=== PATIENT | female | born 2005 | race Caucasian/White ===

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

== ENCOUNTER 2025-01-31 19:18 | Emergency (ER) | payer MEDICAID, SELFPAY ==
[2025-01-31 19:19] VITALS: BP 112/69; PULSE 88; RESP 16; TEMP 37; O2SAT 98
--- NOTE | 2025-01-31 20:12 | EX.ED.DYSGE1 ---
HPI History of Present Illness Chief Complaint: Dizziness Detail of Chief Complaint: Total body paresthesias followed by epistaxis Informant: patient Onset/Context/Timing Onset: Today and Hours Context: Sudden Onset Timing: Intermittent Quality: The paresthesia generalized proceed epistaxis Location: occurred at work Current Severity: Gone Maximum Severity: Moderate Worsened by: Nothing Relieved by: Spontaneous anything for home Associated Symptoms Associated Symptoms: Detailed HPI narrative Narrative Narrative: patient is a 19-year-old female who presents because of total body numbness that was followed by epistaxis. Both have resolved. 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 She denied headache. She denied visual symptoms. She states she felt something in the back of her throat when her nose began to bleed and vomited up blood. Patient is not on an anticoagulant or antithrombotic. She is on an antidepressant. She does report bruising easily recently. She has not noted any lesions on her extremities. Prior to the nosebleed she did not blow her nose, sneeze or bump her nose. Prior similar symptoms: No Recent Illness/Hospitalization: No [facility] Medical History Vapes nicotine containing substance Anxiety Home Medications ?Medication ?Instructions ?Recorded ?Last Taken ?Type melatonin 3 mg tablet 3 mg PO QHS 11/29/17 Unknown History etonogestrel 68 mg subdermal subdermal control 11/19/22 Unknown History implant escitalopram oxalate 20 mg tablet 20 mg PO QDAY 04/11/24 Unknown History cetirizine 10 mg tablet (24Hour 10 mg PO DAILY PRN seasonal 12/01/24 Unknown History Allergy) allergies hydroxyzine HCl 25 mg tablet 12.5 - 25 mg PO TID PRN PRN anxiety 01/31/25 Unknown History Allergy/AdvReac Type Severity Reaction Status Date / Time No Known Allergies Allergy Verified 01/31/25 19:19 Surgical History No significant past surgical history Social History Smoking Status: Current every day smoker tobacco type: e-cigarettes alcohol intake: never substance use type: does not use ROS ROS ED Constitutional Constitutional ED: Denies chills, fever(s), subjective or sweats Eyes Eyes: Denies blurry vision, change in vision or diplopia ENT ENT ED: Reports other Details: Nosebleed from the right side Cardiovascular Cardiovascular: Denies chest pain or palpitations Respiratory/Chest Respiratory/Chest: Denies cough or dyspnea Gastrointestinal Gastrointestinal: Reports nausea and vomiting Genitourinary Genitourinary ED: Denies dysuria, hematuria or urinary frequency Musculoskeletal Musculoskeletal: Denies arthralgias or myalgias Integumentary Denies rash Psychiatric Psychiatric: Reports depression; Denies anxiety Endocrine Endocrinology: Denies cold intolerance or heat intolerance Hematologic/Lymphatic Hematologic/Lymphatic: Reports systems reviewed and no addt'l complaints, except as documented EXAM Physical Exam Const Vital Signs: 01/31/25 19:19 01/31/25 20:47 01/31/25 21:15 Temperature 98.6 F Temperature Source Oral Pulse Rate 88 75 Pulse Rate [Lying] 72 Pulse Rate [Sitting (for 1 minute prior to obtaining)] 74 Pulse Rate [Standing (for 1 minute prior to obtaining)] 76 Respiratory Rate 16 18 Blood Pressure 112/69 113/94 H Blood Pressure [Lying] 101/65 Blood Pressure [Sitting (for 1 minute prior to obtaining)] 108/66 Blood Pressure [Standing (for 1 minute prior to obtaining)] 111/68 Blood Pressure Mean 83 100 Blood Pressure Mean [Lying] 77 Blood Pressure Mean [Sitting (for 1 minute prior to obtaining)] 80 Blood Pressure Mean [Standing (for 1 minute prior to obtaining)] 82 Pulse Ox 98 99 Oxygen Delivery Method Room Air Positive well nourished and well developed General Appearance ED: well developed, NAD and pallor; Negative for cyanotic or diaphoretic HEENT Reports moist mucous membranes HEENT Narrative: Blood noted right vestibule. There is no active bleeding. The nasal mucosa appears normal. There is no blood noted posteriorly. There is no tenderness over the maxillary, ethmoid or frontal sinuses. There is no facial swelling. There is no swelling of the nose. Eyes PERRL and EOMs intact bilaterally General Eye ED: Negative for pale conjunctiva or scleral icterus Neck no lymphadenopathy, supple and no JVD Resp normal respiratory effort Cardio regular rate, regular rhythm and no murmurs GI normal to inspection, nondistended, normoactive bowel sounds, non-tender, non-distended and no masses; Negative for hepatosplenomegaly Extremity normal to inspection Neuro oriented x3 and CN's II-XII intact bilaterally Sensorium / Orientation: alert Psych Mood & Affect: depressed Skin no rashes or lesions noted, no wounds and skin turgor normal General Skin Exam: elasticity normal and pallor; Negative for jaundice MDM MDM MDM Narrative Medical decision making narrative: With history of bruising easily CBC was obtained to assess platelet count. Of note there is no petechiae lower extremity exam there is no bruising noted of her extremities. There is no family history of von Willebrand's disease. Lab Data Attestation: I reviewed the patient's lab results. Lab results narrative: Unremarkable Labs: Laboratory Results - last 24 hr 01/31/25 01/31/25 01/31/25 20:08 20:08 20:24 WBC Cancelled 6.0 Corrected WBC Cancelled RBC Cancelled 3.96 L Hgb Cancelled 12.3 Hct Cancelled 34.8 L MCV Cancelled 87.9 MCH Cancelled 31.1 MCHC Cancelled 35.3 RDW Std Deviation Cancelled 37.5 RDW Coeff of Jana Cancelled 11.6 Plt Count Cancelled 239 MPV Cancelled 10.3 Immature Gran % (Auto) Cancelled 0.200 Neut % (Auto) Cancelled 58.6 Lymph % (Auto) Cancelled 29.8 [place] % (Auto) Cancelled 9.6 Eos % (Auto) Cancelled 1.5 Baso % (Auto) Cancelled 0.3 Absolute Neuts (auto) Cancelled 3.5 Absolute Lymphs (auto) Cancelled 1.80 Total Counted Cancelled Neutrophils % (Manual) Cancelled Band Neutrophils % Cancelled Lymphocytes % (Manual) Cancelled Monocytes % (Manual) Cancelled Eosinophils % (Manual) Cancelled Basophils % (Manual) Cancelled Metamyelocytes % Cancelled Myelocytes % Cancelled Promyelocytes % Cancelled Blast Cells % Cancelled Plasma Cell % (Manual) Cancelled Other Cells % Cancelled Nucleated RBC % Cancelled 0 Nucleated RBCs/100 WBC Cancelled Differential Comment Cancelled Diff Path Review Cancelled Hypersegmented Neuts Cancelled Atypical Lymphocytes Cancelled Reactive Lymphocytes Cancelled Smudge Cells Cancelled Toxic Granulation Cancelled Toxic Vacuolation Cancelled Dohle Bodies Cancelled Olamide Rods Cancelled Platelet Estimate Cancelled Plt Morphology Comment Cancelled RBC Morphology Cancelled Cancelled Polychromasia Cancelled Hypochromasia Cancelled Basophilic Stippling Cancelled Anisocytosis Cancelled Microcytosis Cancelled Macrocytosis Cancelled Spherocytes Cancelled Sickle Cells Cancelled Target Cells Cancelled Tear Drop Cells Cancelled Ovalocytes Cancelled Stomatocytes Cancelled [place] Bodies Cancelled Lander Cells Cancelled Bite Cells Cancelled Crenated Cell Cancelled Acanthocytes (Spur) Cancelled Rouleaux Cancelled Schistocytes Cancelled Treatment and Re-Evaluation :: Patient was over 2-1/2 hours. She was ambulated. There was no further bleeding. She has no return of her symptoms. Discharge Plan Triage Chief Complaint: Dizziness ED Provider: Connor Jacobo Dx/Rx/DC Orders Clinical Impression: Epistaxis not due to trauma, Paresthesia Instructions: ED Epistaxis (Adult), ED Paresthesia Prescriptions: No Action escitalopram oxalate 20 mg tablet 20 mg PO QDAY melatonin 3 MG tablet 3 mg PO QHS etonogestrel 68 mg implant subdermal hydroxyzine HCl 25 mg tablet 12.5 - 25 mg PO TID PRN PRN (Reason: anxiety) cetirizine [24Hour Allergy] 10 mg tablet 10 mg PO DAILY PRN (Reason: seasonal allergies) Primary Care Provider: Care Physician,No Primary Referrals: Care Physician,No Primary [Primary Care Provider, Medical] Activity Restrictions/Additional Instructions: Follow-up with your doctor as needed. The name of your doctor is located on the insurance card issued to you by [facility] Print Language: Belarusian Disposition Disposition: Home, Self Care
[2025-01-31 20:29] LABS: Hematocrit 34.8 % (37-47); Hemoglobin 12.3 g/dL (12.0-15.0); Immature Granulocytes Count 0.010 X10^3/uL (0.0-0.0); Mean Corp Hgb Conc 35.3 g/dL (32-36); Mean Corpuscular Volume 87.9 fL (81-99); Mean Platelet Vol. 10.3 fl (6.2-12.0); NRBC Flagged by Analyzer 0 % (0-5); Platelet Count 239 K/mm3 (150-450); RBC Distribution Width CV 11.6 % (11.6-14.6); RBC Distribution Width SD 37.5 fl (35.1-43.9); Red Blood Count 3.96 M/mm3 (4.2-5.4); White Blood Count 6.0 K/mm3 (4.4-11.0)
[2025-01-31 20:47] VITALS: BP 101/65; BP 108/66; BP 111/68; PULSE 72; PULSE 74; PULSE 76
[2025-01-31 20:48] VITALS: BMI 24.0
[2025-01-31 21:15] VITALS: BP 113/94; PULSE 75; RESP 18; O2SAT 99
[2025-01-31 22:18] VITALS: BP 108/68; PULSE 79; RESP 18; TEMP 36.9; O2SAT 100
== END 2025-01-31 22:19 | disposition home or self-care (01) ==
PROVIDERS: Emergency Provider Emergency Medicine; Visit Provider Emergency Medicine
DX: R04.0 Epistaxis (principal); R42 Dizziness and giddiness; R11.2 Nausea with vomiting, unspecified; R20.2 Paresthesia of skin; F32.A Depression, unspecified; F17.290 Nicotine dependence, other tobacco product, uncomplicated
CPT/HCPCS: 85025; 99284; A4216